=== PATIENT | female | born 1940 | race Caucasian/White ===

== ENCOUNTER → 2019-03-17 | Outpatient (CLI) | payer MEDICARE ==
[~2019-03-17] MED LIST: GADOBUTROL 10 MMOL/10 ML PFS ONE
== END | disposition home or self-care (01) ==
LOC: CFH 14:44
PROVIDERS: ATTEND Radiology Radiation Oncology
DX: C79.31 Secondary malignant neoplasm of brain (principal)
CPT/HCPCS: 70552; A9585

== ENCOUNTER 2019-05-27 07:49 | Outpatient (CLI) | payer MEDICARE | END 2019-05-27 23:59 | disposition home or self-care (01) | LOC: ROC 07:49 | PROVIDERS: ATTEND Radiology Radiation Oncology | DX: C79.31 Secondary malignant neoplasm of brain (principal) | CPT/HCPCS: G0463 ==

== ENCOUNTER 2019-06-04 12:00 | Outpatient (CLI) | payer MEDICARE ==
[2019-06-04] MEDS ORDERED: GADOBUTROL 10 MMOL/10 ML VIAL ONE (13:00)
== END 2019-06-04 23:59 | disposition home or self-care (01) ==
LOC: CFH 12:00
PROVIDERS: ATTEND Radiology Radiation Oncology
DX: C79.31 Secondary malignant neoplasm of brain (principal); G93.9 Disorder of brain, unspecified
CPT/HCPCS: 70553; A9585

== ENCOUNTER 2019-09-23 08:59 | Outpatient (CLI) | payer MEDICARE | END 2019-09-23 23:59 | disposition home or self-care (01) | LOC: ROC 08:59 | PROVIDERS: ATTEND Radiology Radiation Oncology | DX: C79.31 Secondary malignant neoplasm of brain (principal) | CPT/HCPCS: G0463 ==

== ENCOUNTER → 2019-09-23 | Outpatient (CLI) | payer MEDICARE ==
[~2019-09-23] MED LIST changes: -GADOBUTROL 10 MMOL/10 ML PFS ONE; +GADOTERATE 10 MMOL/20 ML SYR ONE
== END | disposition home or self-care (01) ==
LOC: CFH 08:45
PROVIDERS: ATTEND Radiology Radiation Oncology
DX: C79.31 Secondary malignant neoplasm of brain (principal); G31.9 Degenerative disease of nervous system, unspecified
CPT/HCPCS: 70553; A9575

== ENCOUNTER → 2019-10-07 | Outpatient (CLI) | payer MEDICARE ==
[~2019-10-07] MED LIST changes: -GADOTERATE 10 MMOL/20 ML SYR ONE; +GADOTERATE 7.5 MMOL/15 ML SYR ONE
== END | disposition home or self-care (01) ==
LOC: CFH 11:56
PROVIDERS: ATTEND Radiology Radiation Oncology
DX: C79.51 Secondary malignant neoplasm of bone (principal); M51.86 Other intervertebral disc disorders, lumbar region; M48.061 Spinal stenosis, lumbar region without neurogenic claudication
CPT/HCPCS: 72158; A9575

== ENCOUNTER → 2019-11-29 | Outpatient (CLI) | payer MEDICARE | END | disposition home or self-care (01) | LOC: CFH 12:36 | PROVIDERS: ATTEND Radiology Radiation Oncology | DX: C79.31 Secondary malignant neoplasm of brain (principal); C80.1 Malignant (primary) neoplasm, unspecified; G31.89 Other specified degenerative diseases of nervous system | CPT/HCPCS: 70553; A9575 ==

== ENCOUNTER 2019-12-02 08:13 | Outpatient (CLI) | payer MEDICARE | END 2019-12-02 23:59 | disposition home or self-care (01) | LOC: ROC 08:13 | PROVIDERS: ATTEND Radiology Radiation Oncology | DX: C78.00 Secondary malignant neoplasm of unspecified lung (principal); C79.31 Secondary malignant neoplasm of brain; C79.51 Secondary malignant neoplasm of bone; I67.82 Cerebral ischemia; G93.89 Other specified disorders of brain; C80.1 Malignant (primary) neoplasm, unspecified; G31.9 Degenerative disease of nervous system, unspecified; Z88.8 Allergy status to other drugs, medicaments and biological substances; Z88.6 Allergy status to analgesic agent | CPT/HCPCS: G0463 ==

== ENCOUNTER → 2019-12-14 | Outpatient (CLI) | payer MEDICARE | END | disposition home or self-care (01) | LOC: CFH 11:46 | PROVIDERS: ATTEND Radiology Radiation Oncology | DX: C79.31 Secondary malignant neoplasm of brain (principal); G93.89 Other specified disorders of brain; G93.0 Cerebral cysts | CPT/HCPCS: 70553; A9575 ==

== ENCOUNTER 2020-03-03 07:41 | Outpatient (CLI) | payer MEDICARE | END 2020-03-03 23:59 | disposition home or self-care (01) | LOC: ROC 07:41 | PROVIDERS: ATTEND Radiology Radiation Oncology | DX: C34.90 Malignant neoplasm of unspecified part of unspecified bronchus or lung (principal); C79.51 Secondary malignant neoplasm of bone; C79.31 Secondary malignant neoplasm of brain | CPT/HCPCS: G0463 ==

== ENCOUNTER 2020-05-01 12:07 | Outpatient (CLI) | payer MEDICARE ==
[2020-05-01] MEDS ORDERED: GADOTERATE 10 MMOL/20 ML SYR ONE (12:59)
== END 2020-05-01 23:59 | disposition home or self-care (01) ==
LOC: CFH 12:07 → EDSTATUS 13:00 → CFH 23:59
PROVIDERS: ATTEND Radiology Radiation Oncology
DX: C79.31 Secondary malignant neoplasm of brain (principal)
CPT/HCPCS: 70553; A9575

== ENCOUNTER 2020-05-17 08:14 | Outpatient (CLI) | payer MEDICARE | END 2020-05-17 23:59 | disposition home or self-care (01) | LOC: ROC 08:14 | PROVIDERS: ATTEND Radiology Radiation Oncology | DX: Z08 Encounter for follow-up examination after completed treatment for malignant neoplasm (principal); Z85.841 Personal history of malignant neoplasm of brain; Z85.830 Personal history of malignant neoplasm of bone | CPT/HCPCS: G0463 ==

== ENCOUNTER 2020-06-12 07:29 | Outpatient (CLI) | payer MEDICARE | END 2020-06-12 23:59 | disposition home or self-care (01) | LOC: ROC 07:29 | PROVIDERS: ATTEND Radiology Radiation Oncology | DX: Z02.9 Encounter for administrative examinations, unspecified (principal) ==

== ENCOUNTER → 2020-06-14 | Outpatient (CLI) | payer MEDICARE ==
[~2020-06-14] MED LIST changes: +GADOTERATE 10 MMOL/20 ML SYR ONE; -GADOTERATE 7.5 MMOL/15 ML SYR ONE
== END | disposition home or self-care (01) ==
LOC: CFH 11:57
PROVIDERS: ATTEND Radiology Radiation Oncology
DX: C79.31 Secondary malignant neoplasm of brain (principal); R60.0 Localized edema
CPT/HCPCS: 70553; A9575

== ENCOUNTER 2020-06-16 07:56 | Outpatient (CLI) | payer MEDICARE | END 2020-06-16 23:59 | disposition home or self-care (01) | LOC: ROC 07:56 | PROVIDERS: ATTEND Radiology Radiation Oncology | DX: C79.31 Secondary malignant neoplasm of brain (principal); C79.51 Secondary malignant neoplasm of bone; Z85.118 Personal history of other malignant neoplasm of bronchus and lung | CPT/HCPCS: G2012 ==